=== PATIENT | female | born 1960 | race Caucasian/White ===

== ENCOUNTER 2017-07-26 06:52 | Day surgery (SDC) | payer BC ==
[2017-07-26] MEDS ORDERED: PROPOFOL 500 MG/50 ML EMU IV ONE (07:56)
[2017-07-26 08:57] VITALS: O2SAT 96
[2017-07-26 09:14] VITALS: BP 137/85; PULSE 76; RESP 20; TEMP 98.8
== END 2017-07-26 09:30 | disposition home or self-care (01) ==
LOC: SURG 06:52
PROVIDERS: ATTEND Surgery
DX: Z12.11 Encounter for screening for malignant neoplasm of colon (principal); Z86.010 Personal history of colon polyps; Z80.0 Family history of malignant neoplasm of digestive organs; D12.0 Benign neoplasm of cecum; E11.9 Type 2 diabetes mellitus without complications
CPT/HCPCS: 99001; J2704

== ENCOUNTER 2017-07-28 21:21 | Emergency (ER) | payer BC ==
[2017-07-28] MEDS ORDERED: ONDANSETRON HCL 4 MG/2 ML SOL IV ONE (21:44)
[2017-07-28] MEDS ORDERED: SODIUM CHLORIDE 0.9% 1000ML 1,000 ML IV ONE ×2 (21:44→22:49)
[2017-07-28 21:54] VITALS: RESP 20
[2017-07-28 21:57] LABS: BASOPHILS % (AUTO) 1 % (0-3); EOSINOPHILS % (AUTO) 1 % (0-9); HEMATOCRIT 31 % (35-47); MEAN CORPUSCULAR HGB CONC 35.3 gm/dl (32.0-36.0); MEAN CORPUSCULAR VOLUME 83 fL (81-99); MONOCYTES % (AUTO) 8.4 % (0-12); NEUTROPHILS % (AUTO) 55.2 % (37-80)
[2017-07-28 22:15] VITALS: TEMP 97.2; O2SAT 98
[2017-07-28 22:15] LABS: ALBUMIN 3.2 gm/dl (3.4-5.0); CALCIUM 7.8 mg/dl (8.5-10.1)
[2017-07-28 23:08] VITALS: BP 137/64; PULSE 90
== END 2017-07-28 23:08 | disposition short-term general hospital (02) ==
LOC: ED 21:21
DX: K92.2 Gastrointestinal hemorrhage, unspecified (principal); R11.2 Nausea with vomiting, unspecified; R00.0 Tachycardia, unspecified
CPT/HCPCS: 36415; 80053; 85025; 85610; 99285

== ENCOUNTER 2019-01-31 08:06 | Day surgery (SDC) | payer OTHER, BC ==
[2019-01-31] MEDS ORDERED: BUPIVACAINE HCL 0.25% MPF 30 ML SOL INFIL ONE (08:59)
[2019-01-31] MEDS: TRIAMCINOLONE ACETONIDE 40 MG/ML SUS ONE ×4 (09:05→09:14)
[2019-01-31 09:28] VITALS: BP 126/55; PULSE 79; RESP 20; TEMP 98.7; O2SAT 97
== END 2019-01-31 09:50 | disposition home or self-care (01) | DRG 554 ==
LOC: SURG 08:06
PROVIDERS: ATTEND Nurse Anesthetist, Certified Registered
DX: M12.9 Arthropathy, unspecified (principal); E11.9 Type 2 diabetes mellitus without complications
CPT/HCPCS: 82962; J3300